=== PATIENT | female | born 1980 | race Caucasian/White ===

== ENCOUNTER 2025-06-16 08:41 | Observation (INO) | payer OTHER ==
[~2025-06-16] VITALS: Ht 162.6 cm; Wt 80.4 kg
[2025-06-16] MEDS ORDERED: KETOROLAC TROMETHAMINE 30 MG/ML VIAL IV ONE (09:30)
[2025-06-16] MEDS ORDERED: SODIUM CHLORIDE 0.9% 1,000 ML IV ONE (09:30)
[2025-06-16 10:19] LABS: BASOPHILS 0.6 % (0.1-1.2); EOSINOPHILS 0.2 % (0.7-5.8); LYMPHOCYTES 12.4 % (19.3-51.7); MCH 26.0 PG (25.6-32.2); MCHC 33.3 g/dL (32.2-35.5); MCV 78.0 fL (79.4-94.8); MONOCYTES 9.8 % (4.7-12.5); NEUTROPHILS 76.6 % (34.0-71.1); RBC 5.31 M/uL (3.93-5.22)
[2025-06-16 10:34] LABS: ALT (SGPT) 36.0 U/L (14-59); AST (SGOT) 62.0 U/L (15-37); GLOMERULAR FILTRATION RATE,EST 112.0 mL/min (>60); PROTEIN, TOTAL 8.5 g/dL (6.4-8.2); UREA NITROGEN 11.0 mg/dL (7-18)
[2025-06-16] MEDS ORDERED: SODIUM CHLORIDE 0.9% 1,000 ML IV SCH (11:45)
[2025-06-16] MEDS ORDERED: FAMOTIDINE 20 MG/ 2 ML VIAL IV ONE (11:45)
[2025-06-16 12:00] LABS: BLOOD/HGB, URINE SMALL (Negative); KETONE, URINE SMALL (Negative); LEUK ESTERASE, URINE NEGATIVE (negative); NITRITE, URINE NEGATIVE (negative)
[2025-06-16 12:15] LABS: BACTERIA, URINE RARE /hpf (negative); CASTS, URINE NONE SEEN \\lpf; CRYSTALS, URINE NONE SEEN (0-1+); EPITHELIAL CELLS, URINE SQUAMOUS 1+ /lpf (0-1+); REFLEX CULTURE, URINE No (No)
[2025-06-16] MEDS ORDERED: CEFAZOLIN SODIUM 2 GM in SODIUM CHLORIDE 0.9% 100 ML IV ONE (12:30)
[2025-06-16] MEDS ORDERED: LACTATED RINGER'S 1,000 ML IV SCH (13:15)
[2025-06-16] MEDS ORDERED: MORPHINE SULFATE 10 MG/ML VIAL IV PRN (13:15)
[2025-06-16] MEDS ORDERED: KETOROLAC TROMETHAMINE 30 MG/ML VIAL IV PRN ×2 (13:15→17:15)
[2025-06-16] MEDS ORDERED: LACTATED RINGER'S 1,000 ML IV ONE (13:15)
[2025-06-16] MEDS ORDERED: SODIUM CHLORIDE 0.9% 20 ML IV ONE (13:47)
[2025-06-16] MEDS ORDERED: CEFAZOLIN SODIUM 2 GM in SODIUM CHLORIDE 0.9% 100 ML IV SCH ×3 (14:00→22:00)
--- NOTE | 2025-06-16 14:20 | NUR ---
PT TO [facility], RECIEVED REPORT FROM ANNETTE GUERRIER. PT ABLE TO AMBULATE INDEPENDENTLY FROM WHEELCHAIR TO BED. PT ABLE TO ANSWER ADMISSION QUESTIONS INDEPENDENTLY. PT STATES NO CURRENT NEEDS, SIGNIFICANT OTHER AT THE BEDSIDE. CALL LIGHT WITHIN REACH.
[2025-06-16 14:24] VITALS: BP 97/69
[2025-06-16] MEDS ORDERED: HYDROmorphone HCL 1 MG/ML SYR IV PRN ×2 (15:00→17:15)
[2025-06-16] MEDS ORDERED: DEXTROSE 5% - LACTATED RINGERS 1,000 ML IV SCH (15:00)
--- NOTE | 2025-06-16 15:02 | NUR ---
UR CLINICAL REVIEW: ROBBIN, MEETS OBS FOR GALLBLADDER INFLAMMATION ULTRASOUND POSITIVE FOR CHOLECYSTITIS, ABDOMINAL PAIN, TACHYCARDIC SURGICAL INTERVENTION NEEDED [facility] OBS 06/16/2025 @ 1142 ORDER MATCHES REG NO AUTH REQUIRED FOR OBS PER MEDICAID RULES PLAN TO DC TO HOME WHEN MEDICALLY READY 06/17/2025
[2025-06-16] MEDS ORDERED: DISKETS40 MG PO (15:20)
--- NOTE | 2025-06-16 15:20 | NUR ---
MED REC COMPLETE
[2025-06-16] MEDS ORDERED: SEVOFLURANE 250 ML BTL INH ONE (15:59)
--- NOTE | 2025-06-16 16:15 | NUR ---
PRE OP WIPEDOWN COMPLETE, NEW GOWN IN PLACE, SCDs IN PLACE. PT STATES NO FURTHER NEEDS, ALL JEWELRY AND CLOTHING REMOVED. CALL LIGHT WITHIN REACH, SIGNIFICANT OTHER AT THE BEDSIDE.
[2025-06-16] MEDS ORDERED: KETAMINE in NS 50 MG/5 ML SYR ONE (16:58)
[2025-06-16] MEDS ORDERED: fentaNYL citrate 100 MCG/2 ML VIAL ONE (16:58)
[2025-06-16] MEDS ORDERED: DEXAMETHASONE SOD PHOS 4 MG/ML VIAL ONE (17:01)
[2025-06-16] MEDS ORDERED: ACETAMINOPHEN 1,000 MG/100 ML VIAL ONE (17:03)
[2025-06-16] MEDS ORDERED: MAGNESIUM SULFATE 1 GM/2 ML VIAL ONE (17:03)
[2025-06-16] MEDS ORDERED: ROCURONIUM BROMIDE 50 MG/5 ML SYR ONE (17:04)
[2025-06-16] MEDS ORDERED: LIDOCAINE HCL 2% 5 ML SDV ONE (17:04)
[2025-06-16] MEDS ORDERED: NALOXONE HCL 0.4 MG SYR IV PRN (17:15)
[2025-06-16] MEDS ORDERED: IBLOOD GLUCOSE TEST STRIP 1 EA TEST VI PRN (17:15)
--- NOTE | 2025-06-16 17:20 | NUR ---
PT OFF UNIT FOR PROCEDURE.
[2025-06-16] MEDS ORDERED: CEFAZOLIN SODIUM 2 GM VIAL ONE (17:54)
[2025-06-16] MEDS ORDERED: MORPHINE SULFATE 10 MG/ML VIAL ONE (19:40)
[2025-06-16] MEDS ORDERED: SUGAMMADEX SODIUM 200 MG/2 ML ML ONE (20:31)
[2025-06-16] MEDS ORDERED: FAMOTIDINE 20 MG/ 2 ML VIAL IV SCH (21:25)
--- NOTE | 2025-06-16 21:42 | NUR ---
06/16/252141 Candi Rick 2057 PT ARRIVED TO PACU ON RA, PT STARTS TO CRY AND REPORT BRING HOT. PT RESTLESS IN BED AND RESP RATE STARTS TO INCREASE. ROSA DRAIN DRAINED ON ARRIVAL. AWARE. LGIHT RED DRAINAGE NOTED. COOL WASH CLOTH TO HER HEAD AND COOL AIR BLOWING ON PT. 2100 RESP RATE 37 AND PT REPORTS "I CAN'T BREATHE." RN CONTINUES TO ELECTRONICS INSPECTOR PT ON SLOW BREATHING AND TO REASSURE PT, RN REORIENTING PT TO PACU. PT DENIES PAIN AND NAUSEA. 2109 PT ABLE TO SLOW HER BREATHING AND RELAX SOME, PT REPORT "BACK BEING STIFF." PT MOVING AROUND SOME IN BED. HOB INCREASED AND KNEES INCREASED. ROSA DRAIN DRAINED. 2119 PT REPORTS "IT STARTING TO HURT... OH I AM PANICKING." RN CONTINUES TO REASSURE PT AND COACHING SLOW DEEP BREATHING. PT ABLE TO FOLLOW COACHING. 2125 PT RESTING AND O2 SAT STARTS TO DECREASE TO HIGH 80S. OFF AND ON. 2L NC PLACE. PT ABLE TO CLOSE HER EYES AND REPORTS SHE COULD NAP. 2134 PT ASLEEP OFF AND ON, PERIODS OF APNEA NOTED WITH O2 SAT DECREASED TO 79%-85% AND PT WAKES HERSELF AND DEEP BREATHING NOTED WITHOUT STIMULI. RN CONTINUES TO MONITOR.
[2025-06-16] MEDS ORDERED: LORazepam 2 MG/ML VIAL IV PRN (21:45)
[2025-06-16 22:15] VITALS: BP 136/79
--- NOTE | 2025-06-16 22:15 | NUR ---
RECIEVED REPORT FROM ANNETTE GARAY. PTS VS TAKEN, O2 READING, PT ON 1L AND 96%, SURGICAL SITE ASSESSED, SEROSANGUINOUS DRAINAGE. ROSA DRAIN IN PLACE, SEROSANGUINOUS DRAINAGE. NO REPORTS ON NAUSEA, PAIN 4/10, GIVEN PILLOW TO BRACE FOR COUGHING. SCDS REFUSED AT THIS TIME, PT EDUCATED, IV FLUIDS RUNNING W/O DIFFICULTY. CALL LIGHT IN REACH.
[2025-06-16 22:19] VITALS: BP 136/79
[2025-06-16 22:26] LABS: BASOPHILS 0.4 % (0.1-1.2); EOSINOPHILS 0 % (0.7-5.8); LYMPHOCYTES 5.8 % (19.3-51.7); MCH 26.1 PG (25.6-32.2); MCHC 32.5 g/dL (32.2-35.5); MCV 80.3 fL (79.4-94.8); MONOCYTES 1.5 % (4.7-12.5); NEUTROPHILS 91.9 % (34.0-71.1); RBC 4.21 M/uL (3.93-5.22)
[2025-06-16] MEDS ORDERED: ACETAMINOPHEN 500 MG TAB PO PRN (22:30)
--- NOTE | 2025-06-16 22:31 | NUR ---
CALLED DR GARAY REGARDING LAB RESULT, NO NEW ORDERS.
[2025-06-16 23:25] VITALS: BP 143/85
--- NOTE | 2025-06-16 23:34 | NUR ---
PT C/O RUQ PAIN 04/13, PRN PAIN MED GIVEN. NO OTHER NEEDS AT THIS TIME, SCDS REFUSED AT THIS TIME, PT HAS PILLOW TO BRACE, ICE PACK GIVEN, IV FLUIDS AND ORDERED ABX RUNNING. CALL LIGHT WITHIN REACH.
[2025-06-17] VITALS (12 sets, daily range): BP systolic 93–146; BP diastolic 53–86
--- NOTE | 2025-06-17 00:20 | NUR ---
PTS ROSA DRAIN DRESSING SATURATED IN SEROSANGUINOUS FLUID, DRESSING CHANGED BY ANNETTE TREJO. PT IN BED WITH CALL LIGHT IN REACH, CPOX ON, NO OTHER NEEDS REPORTED.
--- NOTE | 2025-06-17 00:27 | NUR ---
PT CALLED TO USE BR. ATTEMPTED TO ASSIST PT TO BR W/ HELP OF OTHER ONCOLOGY TRANSPLANT NETWORK MANAGER, UNABLE D/T PAIN. BEDPAN PLACED AND PT UNABLE TO VOID. GOWN CHANGED D/T DRAINAGE. DRAIN EMPTIED, VITALS DONE. NURSE NOTIFED OF DRAINAGE. CALL LIGHT IN REACH, RN IN ROOM.
--- NOTE | 2025-06-17 01:42 | NUR ---
PT REPORTS PAIN IN ABDOMEN 10/10, PRN PAIN MED GIVEN. PT REPORTS HAVING TO URINATE, UNABLE TO USE PURWICK. AFTER MEDICATION BEGINS TO WORK, PLAN IS TO AMBULATE PT TO BSC TO VOID. BLADDER SCAN 706MLS.
--- NOTE | 2025-06-17 02:09 | NUR ---
PT ASSISTED TO THE BSC AND ABLE TO URINATE 900ML. PT REPORTS DECREASE IN PAIN AFTER THIS, PT BACK TO BED, 1L NC, CPOX ON, CALL LIGHT WITHIN REACH. NO OTHER NEEDS AT THIS TIME.
--- NOTE | 2025-06-17 03:20 | NUR ---
PT LAYING IN BED, EYES CLOSED, UNLABORED BREATHING. CPOX ON, CALL LIGHT WITHIN REACH. 02 94% ON 1L NC, HR 100.
--- NOTE | 2025-06-17 04:25 | NUR ---
PT CALLS FOR REPOSITIONING, PT REPOSITIONED. PT REPORTING PAIN 9/10 IN ABDOMEN, PRN PAIN MED GIVEN. SURGICAL SITE ASSESSED NO DRAINAGE NOTED. CALL LIGHT WITHIN REACH.
--- NOTE | 2025-06-17 05:45 | NUR ---
PT VS TAKEN, PT REPORTS PAIN 9/10, PRN PAIN MED GIVEN. PT REPORTS NO OTHER NEEDS, ROSA DRAIN EMPTIED, CALL LIGHT WITHIN REACH.
[2025-06-17 05:56] LABS: BASOPHILS 0.2 % (0.1-1.2); EOSINOPHILS 0 % (0.7-5.8); LYMPHOCYTES 7.5 % (19.3-51.7); MCH 26.3 PG (25.6-32.2); MCHC 32.8 g/dL (32.2-35.5); MCV 80.0 fL (79.4-94.8); MONOCYTES 4.2 % (4.7-12.5); NEUTROPHILS 87.6 % (34.0-71.1); RBC 4.11 M/uL (3.93-5.22)
--- NOTE | 2025-06-17 07:05 | NUR ---
RECIEVED REPORT FROM ANNETTE ALCANTAR AND ANNETTE TREJO. PT RESTING IN BED, WAKES TO RNs IN ROOM. TWO RN SKIN CHECK COMPLETED WITH STRAIGHTENING MACHINE FEEDER RNs. DRESSINGS WITH SCANT AMOUNT OF RED DRY DRAINAGE PRESENT. PT STATES NO CURRENT NEEDS. CALL LIGHT WITHIN REACH.
[2025-06-17] MEDS ORDERED: METHADONE HCL 10 MG TAB PO SCH (09:00)
[2025-06-17] MEDS ORDERED: INFLUENZA VACCINE IM ONE (09:00)
--- NOTE | 2025-06-17 10:16 | NUR ---
PUT ON SCDS, PATIENT REPORTED SHE DID NOT NEED ANYTHING AT THIS TIME, CALL LIGHT WAS GIVEN TO THE PATIENT
--- NOTE | 2025-06-17 10:45 | NUR ---
INTO SEE PATIENT. PERSONAL HEALTH INFOMATION REVIEWED. SHE SEES A PCP AT THE [facility] BUT UNSURE WHO IT IS. PATIENT LIVES IN A HOUSE [place] [facility]. PATIENT DOES NOT USE ANY DME. DRIVES. DENIES ANY DIFFCULTY PAYING UTLITIE OR OBTIANING FOOD. PATIENT TO DISCHARGE HOME WITH BOYFRIEND WHEN MEDICALLY CLEARED FOR D/C. NO FUTHER CM NEEDS.
[2025-06-17] MEDS ORDERED: IBUPROFEN 600 MG TAB PO PRN (12:00)
[2025-06-17] MEDS ORDERED: ACETAMINOPHEN 500 MG TAB PO SCH (12:00)
[2025-06-17] MEDS ORDERED: OXYCODONE HCL 5 MG TAB PO PRN (12:00)
--- NOTE | 2025-06-17 13:23 | NUR ---
PT RESTING IN BED WITH EYES CLOSED, BREATHING EVEN AND UNLABORED. PT ABLE TO TOLERATE SMALL AMOUNT OF LUNCH TRAY W/O NAUSEA OR INCREASED PAIN REPORTED. CALL LIGHT WITHIN REACH.
--- NOTE | 2025-06-17 13:40 | NUR ---
In with pt to encourage her to ambulate. SBA as pt transferred from bed to standing, no c/o dizziness or lightheadedness, no nausea. Pt reports increase in pain mainly just with transferring out of and in to her bed. Pt was able to ambulate (I simply walked with the IV pole for her) down to the main nurses' station and back. Pt ambulated to the toilet to void approximately 300ml clear yellow urine. Pt requested assistance with wiping. Pt ambulated back to bed, after linens refreshed. Fresh ice pack provided. IVF running at ordered rate. Side rails up x3, call light in reach. Pt denies further needs at this time.
--- NOTE | 2025-06-17 13:45 | NUR ---
UR CLINICAL REVIEW: ROBBIN, MEETS OBS FOR GALLBLADDER INFLAMMATION CONTINUED NEED FOR MONITORING, HAS NOT YET TOLERATED PO INTAKE POSTOP WILL DC LIKELY TODAY WHEN PO INTAKE TOLERATED [facility] OBS 06/16/2025 @ 1142 ORDER MATCHES REG NO AUTH REQUIRED FOR OBS PER MEDICAID RULES PLAN TO DC TO HOME WHEN MEDICALLY READY 06/18/2025
--- NOTE | 2025-06-17 14:53 | NUR ---
PT RESTING IN BED WITH EYES CLOSED, BREATHING EVEN AND UNLABORED. PT WAKES TO RN AT BEDSIDE. PT STATES PAIN IS CURRENTLY 6/10 IN THE ABDOMEN. PLAN MADE WITH PT TO AMBULATE IN HALLWAY FREQUENTLY. PT VERBALIZES UNDERSTANDING.PT STATES NO FURTHER NEEDS AT THIS TIME, CALL LIGHT WITHIN REACH.
--- NOTE | 2025-06-17 16:50 | NUR ---
PT AMBULATING HALLWAY INDEPENDENTLY, REQUESTS DENTURE ADHESIVE, GIVEN. PT UP TO RESTROOM INDEPENDENTLY, STATES NO CURRENT NEEDS, CALL LIGHT WITHIN REACH.
--- NOTE | 2025-06-17 17:05 | NUR ---
PT SITTING UP IN BED, DOES NOT C/O ANY INCREASE IN PAIN DURING WALK. PT STATES NO CURRENT NEEDS, CALL LIGHT WITHIN REACH.
--- NOTE | 2025-06-17 18:46 | NUR ---
PT FINISHES DINNER W/O C/O NAUSEA OR INCREASED PAIN. PT AGREES TO GO FOR WALK AT THIS TIME, EDUCATION PROVIDED ON IMPORTANCE OF WALKING AFTER MEALS. PT VERBALIZES UNDERSTANDING, STATES NO FURTHER NEEDS. CALL LIGHT WITHIN REACH.
--- NOTE | 2025-06-17 19:15 | NUR ---
REPORT RECEIVED FROM RAGINI BRYANT. pt RESTING IN THE BED WITH EYES CLOSED. RR EVEN AND UNLABORED. CALL LIGHT WITHIN REACH.
--- NOTE | 2025-06-17 20:50 | NUR ---
ASSESSMENT AND VITAL SIGNS DONE. SCHEDULED MEDS ADMINISTERED. LAP SITE HAVE OLD SHADOWING AND ARE CDI. WATER REFRESHED. JUICE PROVIDED PER pt REQUEST. SS DRAINAGE IN HAYES CHARLY. MINIMAL DRAINAGE IN HAYES. pt DENIES ANY NEEDS AT THIS TIME. IV ASSESSED, WNL. CALL LIGHT WITHIN REACH.
--- NOTE | 2025-06-17 22:07 | NUR ---
IN RM TO HANG pt IV ABX. pt RESTING IN THE BED. pt DENIES ANY NEEDS AT THIS TIME. CALL LIGHT WITHIN REACH.
--- NOTE | 2025-06-17 23:23 | NUR ---
pt RESTING IN THE BED. pt DENIES ANY NEEDS AT THIS TIME. CALL LIGHT WITHIN REACH.
--- NOTE | 2025-06-18 01:10 | NUR ---
pt RESTING IN THE BED WITH EYES CLOSED. RR EVEN AND UNLABORED. CALL LIGHT WITHIN REACH.
--- NOTE | 2025-06-18 03:26 | NUR ---
pt RESTING IN THE BED. pt DENIES ANY OTHER NEED AT THIS TIME. CALL LIGHT WITHIN REACH.
[2025-06-18 06:04] VITALS: BP 98/49
[2025-06-18 06:11] VITALS: BP 98/49
--- NOTE | 2025-06-18 06:24 | NUR ---
VITAL SIGNS AND ASSESSMENT DONE. SCANT AMOUNT OF DRAINAGE OUT OF ROSA DRAIN ALL NIGHT. NO NEW DRAINAGE ON DRESSINGS, DRY AND INTACT. pt REQUESTS SNACKS, SNACK PROVIDED. pt DENIES ANY OTHER NEEDS AT THIS TIME. CALL LIGHT WITHIN REACH.
--- NOTE | 2025-06-18 07:03 | NUR ---
Pt report received from ANNETTE Oleary.
--- NOTE | 2025-06-18 07:03 | NUR ---
Pt report received from ANNETTE Oleary
--- NOTE | 2025-06-18 07:20 | NUR ---
PATIENT IN BED AT THIS TIME. THIS LICENSED CERTIFIED ORTHOTIST CHARTED HOURLY ROUNDS, PATIENT REFUSED TO GET INTO CHAIR FOR BREAKFAST. CALL LIGHT WITHIN REACH, NO FURTHER NEEDS.
--- NOTE | 2025-06-18 07:30 | NUR ---
In with pt. Pt is resting in bed, HOB elevated, A&O, reports pain is 5 out of 10 but tolerable. She denies any needs at this time. IV Abx infusion complete. IV saline locked per orders. Dressings are with old drainage, carmen drain with small mount of serosanginous fluid. Call light and bedside table in reach. White board updated.
[2025-06-18] MEDS ORDERED: FAMOTIDINE 20 MG TAB PO SCH (09:00)
[2025-06-18 09:52] VITALS: BP 93/46
--- NOTE | 2025-06-18 09:53 | NUR ---
PATIENT IN BED AT THIS TIME. RESIDENTIAL DIRECTOR CHARTED VITALS AND I&O'S. CALL LIGHT WITHIN REACH, NO FURTHER NEEDS.
--- NOTE | 2025-06-18 12:06 | NUR ---
Pt has been up and ambulated the hallway after breakfast, tolerating the activity well. She hasn't had any complaints of increased pain, or nausea, no reports of dizziness or lightheadedness, although her BP has been soft this morning.
--- NOTE | 2025-06-18 13:17 | NUR ---
Pt up ambulating the hallway independently, tolerating activity well. She advises that she did take a walk a little earlier as well, with her boyfriend. Maurice drain emptied of 15ml serosanguinous (more sanguinous than serous) fluid, last emptied at 0600 hours. Encouraged pt to take in more water PO. As her urine output was 100ml. Pt states that her blood pressure is normally low and she denies any symptoms of hypotension. SBP 101 just prior to her ambulating, P98, SPO2 93% on room air.
[2025-06-18 13:20] VITALS: BP 101/52
--- NOTE | 2025-06-18 13:56 | NUR ---
PATIENT IN BED AT THIS TIME. THIS CONCRETE GUN OPERATOR CHARTED I&O'S, ANNETTE LAURA CHARTED VITALS. CALL LIGHT WITHIN REACH, NO FURTHER NEEDS.
[2025-06-18] MEDS ORDERED: IBUPROFEN600 MG PO (14:23)
[2025-06-18] MEDS ORDERED: ACETAMINOPHEN500 MG PO (14:24)
[2025-06-18] MEDS ORDERED: OXYCODONE HCL5 M1 PO (14:24)
--- NOTE | 2025-06-18 14:24 | NUR ---
Ronald, per Dr. Pollack, to hold the 1400 hour ancef.
--- NOTE | 2025-06-21 11:53 | DS ---
[facility] [address], [place] [address] Signed ADMISSION DATE: 06/16/2025 DISCHARGE DATE: 06/18/2025 REASON FOR ADMISSION: Acute calculous cholecystitis. HISTORY OF PRESENT ILLNESS: This 45-year-old white woman was admitted after evaluation in the emergency room for findings consistent with acute calculous cholecystitis. The patient lives in [place] and is accompanied by boyfriend. PERTINENT PHYSICAL EXAMINATION: VITAL SIGNS: Temperature 98.4, pulse 122, blood pressure 122/85, respirations 18. ABDOMEN: Moderately obese. There is mild tenderness in the epigastric and right subcostal area. LABORATORY STUDIES: Showed a white count of 15.8, hematocrit of 41.4, platelets of 452,000. Chem profile essentially normal. HOSPITAL COURSE: The patient was fluid resuscitated, given intravenous antibiotic Ancef and taken to operation on June 16, 2025. The operation was rather prolonged, complicated and difficult on the basis of some areas of rhys infundibular bleeding ultimately controlled. A drain was placed as well. Postoperatively, she did well. First day, the drain had serosanguineous fluid. Her hematocrit remained stable from a postop of 34 to 33 after that. By the day of discharge, she is ambulating well, tolerating a regular diet as well as oral pain medication. Of special note, the patient takes methadone daily basis of prior opiate abuse history. Nevertheless, she was given additional pain medications as necessary in addition to her maintenance of methadone. DISCHARGE MEDICATIONS: Will include: 1. Ibuprofen 600 mg p.o. q.6 hours as needed for pain #30, refill 1. 2. Oxycodone 5 mg tablets 1 to 2 p.o. q.6 hours as needed for pain #6, no refill. 3. Tylenol 500 mg two tablets p.o. q.6 hours as needed for pain, #30. She will continue with her methadone 40 mg tablets 60 mg p.o. daily. Electronically Signed By: JODIE GARAY MD 06/21/25 1153 PATIENT NAME: PRANAY PENN DISCHARGE SUMMARY DATE OF : 76 REPORT #: [id number] PHYSICIAN: JODIE GARAY MD PCP: NO PRIMARY CARE PHYSICIAN REPORT IS CONFIDENTIAL AND NOT TO BE RELEASED WITHOUT AUTHORIZATION [facility] [address] [place] [id number] Signed DISCHARGE DIAGNOSES: 1. Acute calculous cholecystitis. 2. Underlying opiate addiction history, on methadone maintenance. 3. Status post laparoscopic cholecystectomy with intraoperative cholangiogram; prolonged, complicated and difficult based on pericholecystic bleeding (controlled). MD SIN Maier/MODL /[id number] Copies: ~ Electronically Signed By: JODIE GARAY MD 06/21/25 1153 PATIENT NAME: PRANAY PENN DISCHARGE SUMMARY DATE OF : 76 REPORT #: [id number] PHYSICIAN: JODIE GARAY MD PCP: NO PRIMARY CARE PHYSICIAN REPORT IS CONFIDENTIAL AND NOT TO BE RELEASED WITHOUT AUTHORIZATION
--- NOTE | 2025-06-21 14:13 | OR ---
[facility] [address] [place], [place] [address] Signed DATE OF OPERATION: 06/16/2025 SURGEON: Jodie Garay MD PREOPERATIVE DIAGNOSIS: Acute calculous cholecystitis. POSTOPERATIVE DIAGNOSIS: Severe and advanced acute calculous cholecystitis. PROCEDURES: 1. Laparoscopic cholecystectomy with intraoperative cholangiogram, prolonged, complicated, and difficult. 2. Surgeon-directed fluoroscopy. ANESTHESIA: General endotracheal; Nicholas Saavedra, ASSISTANT, and local 10 mL of 0.25% Marcaine with epinephrine. DRAIN: 7 mm Maurice. ESTIMATED BLOOD LOSS: 300 mL. INDICATION: This 45-year-old woman presents to the emergency room today having at least 2 days and possibly more of significant and severe right upper abdominal pain. Her white count was elevated to greater than 14,000. Alkaline phosphatase and some liver enzymes slightly elevated. Gallbladder ultrasound shows a thickened gallbladder with pericholecystic fluid and gallstones consistent with acute calculous cholecystitis. She has been fluid resuscitated and now is to undergo cholecystectomy, preferably by a laparoscopic approach. The risks of bleeding, infection, bile duct injury, need for open procedure, need for other indicated procedures, were reviewed with the patient and her significant other boyfriend. They understand, and she wishes to proceed. FINDINGS: The gallbladder was quite markedly inflamed and thickened as expected. The liver was reasonably normal. The cystic duct was relatively large in size. Cholangiogram was normal showing no sign of filling defect or other anomaly. Of note, she had rather Electronically Signed By: JODIE GARAY MD 06/21/25 1413 PATIENT NAME: PRANAY PENN OPERATIVE REPORT DATE OF : 76 REPORT #: [id number] PHYSICIAN: JODIE GARAY MD PCP: NO PRIMARY CARE PHYSICIAN REPORT IS CONFIDENTIAL AND NOT TO BE RELEASED WITHOUT AUTHORIZATION [facility] [address], [place] [address] Signed persistent bleeding of both an arterial and venous type in the area of the infundibulum to the right of the infundibulum, ultimately controlled with hemoclips and other interventions. Assurity for ongoing hemostasis was made by application of fibrin glue, and a drain was placed as well. The operation was prolonged, complicated, and difficult, lasting more than 2 hours, at least 4 times longer than usual. DESCRIPTION OF PROCEDURE: The patient was brought to the operating room, given a general endotracheal anesthetic. Preoperative antibiotic Ancef was given. Sequential compression device stockings were used. The abdomen was prepared with a chlorhexidine solution and draped sterilely. An infraumbilical incision was made, and using an open Wilbur cannula technique, pneumoperitoneum was achieved to a level of 14 mmHg of carbon dioxide gas. Intra-abdominal inspection showed no sign of ascites or carcinomatosis. The liver was reasonably normal. The gallbladder was quite markedly thickened and pink in appearance. Three additional trocars were placed in the usual configuration in the subxiphoid, right midclavicular, and right anterior axillary line. The gallbladder was very thickened and certainly unable to be grasped. On that basis, it was decompressed with a needle device. This did decompress the gallbladder well, but the thickened pereira were quite obvious. The puncture site was grasped and elevated cephalad, retracting the gallbladder cephalad. A markedly edematous gallbladder was reaffirmed, in particular in the region of the infundibulum. Using electrocautery, dissection was carefully undertaken ultimately identifying a rather bulky anterior cystic duct. This was dissected free. Freeing the infundibulum on the lateral aspect was undertaken which did result in some amount of venous bleeding, easily controlled with clips. Secondary to that, however, was some more significant arterial bleeding which was initially managed with tamponade using the Endo instrument and allowing for application of another trocar. A Kittner-type laparoscopic instrument was used to apply the pressure to the area. Additional attempts at the application of clips were unsuccessful. Irrigation was undertaken more fully and although cumbersome, and dolphin-nose grasper was used to secure the area of bleeding. Application of cautery was undertaken in a judicious way. Further irrigation was undertaken, and various other maneuvers were undertaken to staunch arterial and venous bleeding. Ultimately, the bleeding had ceased. No distinct application of hemoclip was noted to provide for hemostatic control, but nevertheless, they did appear to have stopped. An Endo clip was applied to the gallbladder-cystic duct junction, and a transverse choledochotomy was made in the cystic duct. Egress of clear bile was noted. Using the Bazan-type cholangiocatheter, intraoperative cholangiography was undertaken. The biliary tree was slightly dilated, but passage of contrast into the duodenum was quite readily straightforward and without sign of filling defect, neoplasm, or other problem. So as to be certain that no proximal biliary structures had been encumbered by clips Electronically Signed By: JODIE GARAY MD 06/21/25 1413 PATIENT NAME: PRANAY PENN OPERATIVE REPORT DATE OF : 76 REPORT #: [id number] PHYSICIAN: JODIE GARAY MD PCP: NO PRIMARY CARE PHYSICIAN REPORT IS CONFIDENTIAL AND NOT TO BE RELEASED WITHOUT AUTHORIZATION [facility] [address] [place], [place] [address] Signed from hemostasis efforts, morphine was administered to allow for retrograde filling of the proximal biliary tree. As it turns out, the proximal biliary tree was far from the area of the clip application. The cystic duct was then doubly clipped and later secured with an Endo Loop PDS. The cystic duct had been transected, and relatively generous arterial branches of the cystic artery were identified and clipped on the medial aspect of the infundibulum. Further dissection was undertaken with electrocautery with meticulous care, gallbladder freed from the liver bed. It was quite thickened and adherent due to the inflammation, both chronic and acute. Gallbladder was placed in an endobag and extracted through the infraumbilical port site and found to have 4 large gallstones at least 2 cm in size each. Mucosa was quite markedly inflamed but without sign of neoplasm proper. Irrigation was undertaken in the hepatic fossa and in the area of previous bleeding, showing good hemostasis. Excess irrigation fluid was suctioned free. Application of fibrin glue (Tisseel) was then undertaken once the area of previous intervention was dry and fully identified. The trocars were removed under direct visualization showing no sign of bleeding. The infraumbilical fascial incision was reapproximated with interrupted 0 Vicryl suture. 10 mL of 0.25% Marcaine with epinephrine was injected locally. The skin was closed with interrupted 3-0 Vicryl, and Steri-Strips were applied. The drain was attached to bulb suction showing thin serosanguineous fluid as would be expected given the extent of irrigation. She was ultimately extubated and transferred to the recovery room in good condition, having suffered only the complication of bleeding, which was managed effectively as noted. Jodie Garay MD JM/MODL /[id number] cc: Thanh Baron MD Copies: THANH BARON MD ~ Electronically Signed By: JODIE GARAY MD 06/21/25 1413 PATIENT NAME: PRANAY PENN OPERATIVE REPORT DATE OF : 76 REPORT #: [id number] PHYSICIAN: JODIE GARAY MD PCP: NO PRIMARY CARE PHYSICIAN REPORT IS CONFIDENTIAL AND NOT TO BE RELEASED WITHOUT AUTHORIZATION
--- NOTE | 2025-06-21 14:13 | HP ---
[facility] [address], [place] [address] Signed ADMISSION DATE: 06/16/2025 REASON FOR ADMISSION: Acute calculous cholecystitis. HISTORY OF PRESENT ILLNESS: This 45-year-old white woman is accompanied by her boyfriend. They live in [place]. The patient has had two days of increasing right upper abdominal pain. She has a history of IV opiate abuse and takes methadone 60 mg daily and included a dose this morning with no recent change in her medications. She presented to the emergency room and was evaluated by Dr. Baron. Her clinical examination was suggestive of cholecystitis. On that basis, she underwent a gallbladder ultrasound which showed findings typical of acute cholecystitis including gallstones, distended gallbladder and gallbladder wall edema, common duct was considered nondilated. PAST MEDICAL HISTORY: In addition to opiate addiction in the past includes a history of facial reconstruction as well as tonsillectomy. She has allergies to sulfa medications including sulfonamide antibiotics. She denies any alcohol use. Her previous drug addiction was heroin and methamphetamine. Her last menstrual period was June 09. REVIEW OF SYSTEMS: She denies any shortness of breath or chest pain. Her pain is down in the right upper abdomen. She has no extremity pain. PHYSICAL EXAMINATION: GENERAL: Pleasant white woman who does not look systemically toxic at this time. VITAL SIGNS: Temperature of 98.4, pulse 122, blood pressure 122/85, respirations 18. Notably, an IV is not yet running, through is intended to be soon. HEENT: Trachea is midline. Mucous membranes were reasonably moist. CHEST: Shows normal respiratory excursion. HEART: Pulses regular. ABDOMEN: Moderately obese. There is mild tenderness in the epigastric right subcostal area. There is no palpable mass. EXTREMITIES: Show no clubbing, cyanosis, or edema. LABORATORY STUDIES: Showed a white count of 15.87, hematocrit 41.4, platelets 452,000. Chem profile essentially normal. Glucose 116, creatinine 0.59. Liver enzymes, AST 62 elevated, alkaline phosphatase elevated 139, bilirubin normal at 0.9, lipase 15. Urinalysis relatively normal. Beta HCG urine test was negative for . Review of her Electronically Signed By: JOIDE GARAY MD 06/21/25 1413 PATIENT NAME: PRANAY PENN HISTORY AND PHYSICAL DATE OF : 76 REPORT #: [id number] PHYSICIAN: JODIE GARAY MD PCP: NO PRIMARY CARE PHYSICIAN REPORT IS CONFIDENTIAL AND NOT TO BE RELEASED WITHOUT AUTHORIZATION [facility] [address], [place] [address] Signed ultrasound images shows shadowing gallstones. Gallbladder does have edematous changes. Radiologist interpretation confirmed gallbladder distention, edema of the gallbladder wall with thickening up to 6 mm and some pericholecystic fluid. She had a positive Eason sign as well. There was no sign of intra or extrahepatic biliary ductal dilatation. ASSESSMENT: The patient has acute calculous cholecystitis as manifested by clinical symptoms and ultrasonographic findings including gallstones and edematous gallbladder wall with pericholecystic fluid. Fluid resuscitation is initiated and antibiotics administered to include Ancef. Discussed with the patient and her significant other the pathophysiology of biliary disease and recommendation of treatment to include cholecystectomy, preferably by laparoscopic approach. The risk of bleeding, infection, bile duct injury, need for open surgery, need for common duct exploration were all reviewed. Depending on logistics, this might be able to be performed today. I will seek to do that if at all possible. MD SIN Maier/FAYE /[id number] cc: Dr. Thanh Baron [facility] Copies: ~ Electronically Signed By: JODIE GARAY MD 06/21/25 1413 PATIENT NAME: PRANAY PENN HISTORY AND PHYSICAL DATE OF : 76 REPORT #: [id number] PHYSICIAN: JODIE GARAY MD PCP: NO PRIMARY CARE PHYSICIAN REPORT IS CONFIDENTIAL AND NOT TO BE RELEASED WITHOUT AUTHORIZATION
--- NOTE | 2025-06-21 15:59 | EKG ---
[facility] [address] [facility] [place] [address] Signed Sinus tachycardia Otherwise normal ECG No previous ECGs available Confirmed by Angela Napier MD () on 06/21/2025 3:58:54 PM Electronically Signed By: ANGELA NAPIER MD 06/21/25 1559 PATIENT NAME: PRANAY PENN Electrocardiogram DATE OF : 76 PHYSICIAN: ANGELA NAPIER MD REPORT #: [id number] REPORT IS CONFIDENTIAL AND NOT TO BE RELEASED WITHOUT AUTHORIZATION
--- NOTE | 2025-06-22 09:24 | PATH ---
[facility] [address] [place] [address] Signed SPECIMEN(S): A GALLBLADDER AND CONTENTS SPECIMEN SOURCE: A. GALLBLADDER AND CONTENTS CLINICAL HISTORY: Cholecystitis FINAL PATHOLOGIC DIAGNOSIS: Gallbladder, cholecystectomy: - Acute and chronic cholecystitis with cholelithiasis. - No malignancy identified. [facility] MICROSCOPIC EXAMINATION: Histologic sections of all submitted blocks are examined by light microscopy. These findings, together with the gross examination, support the pathologic diagnosis. GROSS DESCRIPTION: The specimen, labeled and designated "Siremigio, gallbladder and contents," is received in formalin and consists of Specimen: Previously opened gallbladder. Dimensions: 9.2 x 3.7 x 3.0 cm. Serosa: Hydro-trevino to violaceous and smooth. Cystic Duct: Unobstructed, margin inked black and shaved. Calculi: Four green-trevino multifaceted calculi (1.7-2.5 cm in greatest dimension). Mucosa: Red-brown and trabeculated with some velvety areas. Wall thickness: 0.3-0.7 cm. Lymph node: No pericystic lymph nodes are grossly identified. Additional: None. [employer] sections are submitted in (A1). VB (under the direct supervision of a pathologist) The Gross Description was prepared using a voice recognition system. The report was reviewed for accuracy; however, sound-alike word errors, addition and/or deletions may occur. If there is any question about this report, please contact Client Services. ADDITIONAL NOTES: Immunohistochemical and/or in situ hybridization studies if performed in this PATIENT NAME: PRANAY PENN PATHOLOGY DATE OF : 76 REPORT #: [id number] PHYSICIAN: ALICE AGEE PCP: NO PRIMARY CARE PHYSICIAN REPORT IS CONFIDENTIAL AND NOT TO BE RELEASED WITHOUT AUTHORIZATION [facility] [address] [place], [place] [address] Signed case included appropriate positive controls that reacted as expected. This test was developed and its performance characteristics determined by [email or web address]. It has not been cleared or approved by the U.S. Food and Drug Administration. The FDA has determined that such clearance or approval is not necessary. This test is used for clinical purposes. It should not be regarded as investigational or for research. [email or web address] is certified under the Clinical Laboratory Improvement Amendments of 1988 (CLIA) as qualified to perform high complexity clinical laboratory testing. PERFORMING LABORATORY: Technical component was performed by [email or web address], [address] [place] [id number] (CLIA# [id number]). Professional interpretation was performed by [facility], [address] [place] [id number] (CLIA#: [id number]). Diagnostician: Rayshawn Alvarez MD Pathologist Electronically Signed 06/22/2025 Copies: ~ PATIENT NAME: PRANAY PENN PATHOLOGY DATE OF : 76 REPORT #: [id number] PHYSICIAN: ALICE AGEE PCP: NO PRIMARY CARE PHYSICIAN REPORT IS CONFIDENTIAL AND NOT TO BE RELEASED WITHOUT AUTHORIZATION
== END 2025-06-18 15:15 | disposition home or self-care (01) ==
LOC: ED 08:41 → MS 08:43
PROVIDERS: Emergency Medicine; ADMIT Surgery; ATTEND Surgery
PROC: BF12YZZ Fluoroscopy of Gallbladder using Other Contrast (ICD-10-PCS; 2025-06-16)
PROC: 0FT44ZZ Resection of Gallbladder, Percutaneous Endoscopic Approach (ICD-10-PCS; principal; 2025-06-16 14:45)
DX: K80.12 Calculus of gallbladder with acute and chronic cholecystitis without obstruction (principal); K76.0 Fatty (change of) liver, not elsewhere classified; Z88.2 Allergy status to sulfonamides
CPT/HCPCS: 00790; 36415; 51798; 74300; 76705; 80053; 81001; 83690; 83735; 84703; 85025; 88304; 93005; 93010; 94762; 96365; 96366; 96375; 96376; 99285-25; A9270; G0378; J0131; J0688; J1100; J1885; J2003; J2270; J2405; J3010; J3475; J3490; J7030; J7121; Q9967